=== PATIENT | male | born 1965 | race Caucasian/White ===

== ENCOUNTER → 2019-02-01 | Outpatient (CLI) | payer OTHER ==
[~2019-02-01] MED LIST: AMLODIPINE BESY10 MG PO; FLEXERIL PO; NAPROSYN500 MG PO; NORCO 10-325 T1 EACH PO; NORCO 5-325 TA1 EACH PO; ZANAFLEX4 MG PO
== END ==
LOC: M.RAD 13:06
DX: J18.1 Lobar pneumonia, unspecified organism (principal)